=== PATIENT | male | born 1985 | race Caucasian/White ===

== ENCOUNTER 2017-12-01 12:02 | Emergency (ER) | payer OTHER ==
[~2017-12-01] VITALS: Ht 195.6 cm; Wt 102.5 kg
[2017-12-01 12:08] VITALS: Ht 195.6 cm; Wt 102.5 kg
[2017-12-01 13:25] VITALS: BP 135/86
== END 2017-12-01 13:25 | disposition home or self-care (01) ==
LOC: ED 12:02
DX: L84 Corns and callosities (principal); M20.41 Other hammer toe(s) (acquired), right foot; I10 Essential (primary) hypertension; F17.210 Nicotine dependence, cigarettes, uncomplicated; Z71.6 Tobacco abuse counseling
CPT/HCPCS: 82962; 99406

== ENCOUNTER 2018-03-05 00:51 | Emergency (ER) | payer OTHER ==
[~2018-03-05] VITALS: Ht 195.6 cm; Wt 106.1 kg
[2018-03-05 03:11] LABS: BASOPHIL % 0.5 % (0-2); RED CELL DISTRIBUTION WIDTH 13.3 % (11.5-14.5)
[2018-03-05 03:12] LABS: PLATELET COUNT 128 x10^3mcL (130-400)
[2018-03-05 03:20] LABS: CALCIUM 8.5 mg/dL (8.5-10.1); CARBON DIOXIDE 30.2 mmol/L (21-32); CHLORIDE SERUM 105 mmol/L (98-107); CREATININE SERUM 0.8 mg/dL (0.7-1.3); GFR1 > 60 mL/min; GLUCOSE SERUM 105 mg/dL (74-106); POTASSIUM SERUM 3.9 mmol/L (3.5-5.1); SODIUM SERUM 142 mmol/L (136-145)
[2018-03-05 03:24] LABS: ALKALINE PHOSPHATASE 82 U/L (46-116); ALT/SGPT 22 U/L (16-63); AST/SGOT 15 U/L (15-37); BILIRUBIN TOTAL 0.41 mg/dL (0.20-1.00); TOTAL PROTEIN, SERUM 6.4 g/dL (6.4-8.2)
[2018-03-05 03:25] LABS: ALBUMIN 3.1 g/dL (3.4-5.0)
[2018-03-05 05:43] VITALS: BP 136/78
== END 2018-03-05 05:52 | disposition home or self-care (01) ==
LOC: ED 00:51
PROVIDERS: Emergency Medicine
DX: L03.032 Cellulitis of left toe (principal); I10 Essential (primary) hypertension
CPT/HCPCS: 36415; 83880; Q0092

== ENCOUNTER 2018-05-29 03:02 | Emergency (ER) | payer OTHER ==
[~2018-05-29] VITALS: Ht 195.6 cm; Wt 109.0 kg
[2018-05-29 03:09] VITALS: Ht 195.6 cm; Wt 109.0 kg
[2018-05-29 04:14] VITALS: BP 135/82
== END 2018-05-29 04:14 | disposition home or self-care (01) ==
LOC: ED 03:02
DX: L03.116 Cellulitis of left lower limb (principal); B35.3 Tinea pedis; I10 Essential (primary) hypertension

== ENCOUNTER 2018-06-16 07:45 | Emergency (ER) | payer OTHER ==
[~2018-06-16] VITALS: Ht 195.6 cm; Wt 108.5 kg
[2018-06-16 07:50] VITALS: BP 153/89; Ht 195.6 cm; Wt 108.5 kg
== END 2018-06-16 08:10 | disposition home or self-care (01) ==
LOC: ED 07:45
DX: L03.116 Cellulitis of left lower limb (principal); I10 Essential (primary) hypertension